=== PATIENT | female | born 1970 | race Native Hawaiian/Other Pacific Islander ===

== ENCOUNTER 2016-10-02 10:00 | Day surgery (SDC) | payer MEDICAID ==
[2016-10-02] MEDS ORDERED: Lactated Ringer's 500 ML IV ONE (10:18)
[2016-10-02] MEDS ORDERED: Albuterol HFA 90 mcg/actuation (8 g) ONE (10:50)
[2016-10-02] MEDS ORDERED: Propofol 10 mg/ml Inj (20 ML) ONE (13:03)
[2016-10-02 13:21] VITALS: TEMP 97; O2SAT 99
[2016-10-02 13:35] VITALS: BP 110/70; PULSE 76; RESP 18
== END 2016-10-02 15:23 | disposition home or self-care (01) ==
LOC: H.ENDO 10:00
PROVIDERS: ATTEND Internal Medicine Gastroenterology
DX: K29.50 Unspecified chronic gastritis without bleeding (principal); R12 Heartburn; R10.13 Epigastric pain; E11.9 Type 2 diabetes mellitus without complications

== ENCOUNTER 2017-02-19 10:18 | Day surgery (SDC) | payer MEDICAID ==
[2017-02-19] MEDS ORDERED: Lactated Ringer's 1,000 ML IV ONE (10:32)
[2017-02-19] MEDS ORDERED: Propofol 10 mg/ml Inj (20 ML) ONE (11:49)
[2017-02-19] MEDS ORDERED: Lidocaine 2% MPF (5 ml) Inj ONE (11:49)
[2017-02-19 12:34] VITALS: O2SAT 100
[2017-02-19 12:35] VITALS: BP 98/73; PULSE 80; RESP 18; TEMP 97.6
== END 2017-02-19 14:47 | disposition home or self-care (01) ==
LOC: H.ENDO 10:18
PROVIDERS: ATTEND Internal Medicine Gastroenterology
DX: R19.7 Diarrhea, unspecified (principal); E11.9 Type 2 diabetes mellitus without complications; E78.5 Hyperlipidemia, unspecified; I10 Essential (primary) hypertension; K64.8 Other hemorrhoids
CPT/HCPCS: 45380; 82948; 88305; 88313; J2704; J7120